=== PATIENT | female | born 1975 | race African-American/Black ===

== ENCOUNTER 2022-04-05 11:42 | Emergency (ER) | payer SELFPAY | END 2022-04-05 13:12 | LOC: MW.ED 11:42 | DX: Z02.89 Encounter for other administrative examinations (principal); F17.210 Nicotine dependence, cigarettes, uncomplicated | CPT/HCPCS: 99282; 99283 ==

== ENCOUNTER 2022-08-30 12:19 | Observation (INO) | payer SELFPAY ==
[2022-08-30] MEDS ORDERED: Sodium Chloride 0.9% 10 ML Syringe FLUSH PRN (12:55)
[2022-08-30] MEDS ORDERED: Sodium Chloride 0.9% 1,000 ML IV ONE (12:55)
[2022-08-30] MEDS ORDERED: Sodium Chloride 0.9% 2.5 ML Syringe FLUSH PRN (12:55)
[2022-08-30] MEDS ORDERED: Dicyclomine 10 MG Cap PO ONE (12:56)
[2022-08-30] MEDS ORDERED: Morphine 4 MG/ML Syringe IVPUSH ONE (12:56)
[2022-08-30] MEDS ORDERED: Famotidine 20 MG/2 ML SDV IVPUSH ONE (12:56)
[2022-08-30] MEDS ORDERED: Ondansetron 4 MG/2 ML SDV IVPUSH ONE (12:56)
[2022-08-30 13:13] LABS: BASOPHILS PERCENT AUTO 0.2 % (0.0-1.5); EOSINOPHILS ABSOLUTE AUTO 0.8 K/uL (0.0-0.7); HEMATOCRIT 45.1 % (36.0-46.0); HEMOGLOBIN 15.7 g/dL (12.0-16.0); LYMPHOCYTES ABSOLUTE AUTO 4.9 K/uL (0.6-2.4); MEAN CORPUSCULAR HEMOGLOBIN 31.7 pg (27.0-32.0); MEAN CORPUSCULAR HGB CONC 34.8 g/dL (31.0-37.0); MEAN CORPUSCULAR VOLUME 91.1 fL (80.0-98.0); MONOCYTES ABSOLUTE AUTO 0.4 K/uL (0.0-0.8); MONOCYTES PERCENT AUTO 3.3 % (0.0-15.0); NEUTROPHILS PERCENT AUTO 45.5 % (48.0-80.0); NRBC ABSOLUTE 0 K/uL; PLATELET COUNT,PLT 270 K/uL (150-400); RED BLOOD CELL COUNT 4.95 M/uL (4.30-5.90); WHITE BLOOD CELL COUNT,WBC 11.07 K/uL (4.0-11.0)
[2022-08-30 13:37] LABS: A/G RATIO 0.9 (0.9-1.6); ALANINE AMINOTRANSFERASE,ALT 28 IU/L (14-63); ALBUMIN 3.7 g/dL (3.4-5.0); ALKALINE PHOSPHATASE 148 U/L (46-116); ASPARTATE AMNIOTRANSFERASE,AST 14 IU/L (15-37); BILIRUBIN TOTAL 0.2 mg/dL (0.2-1.0); BLOOD UREA NITROGEN,BUN 13 mg/dL (7.0-18.0); CALCIUM 8.5 mg/dL (8.5-10.1); CARBON DIOXIDE,CO2 26.8 mmol/L (21.0-32.0); CHLORIDE,CL 107 mmol/L (98-107); CREATININE 0.9 mg/dL (0.6-1.0); GLUCOSE RANDOM 116 mg/dL (74-106); LIPASE 59 U/L (73-393); MAGNESIUM 1.7 mg/dL (1.8-2.4); POTASSIUM,K 4.1 mmol/L (3.5-5.1); SODIUM,NA 143 mmol/L (136-145)
[2022-08-30 13:39] LABS: ESTIMATED GFR 79 mL/min (>60)
[2022-08-30] MEDS ORDERED: Iopamidol 755 MG/ML 500 ML Multipack Bottle IVPUSH STA (13:56)
[2022-08-30] MEDS ORDERED: diphenhydrAMINE 50 MG/ML SDV IVPUSH ONE (14:01)
[2022-08-30] MEDS ORDERED: metroNIDAZOLE/Normal Saline 500 MG in Premix Bag 1 BAG IV ONE (14:58)
[2022-08-30] MEDS ORDERED: Levofloxacin/Dextrose 5%-Water 750 MG in Premix Bag 1 BAG IV ONE (14:58)
[2022-08-30] MEDS ORDERED: Levofloxacin/Dextrose 5%-Water 750 MG in Premix Bag 1 BAG IV SCH (15:00)
[2022-08-30] MEDS ORDERED: Non-Formulary Medication 1 Each (Buprenorphine Hcl/Naloxone Hcl [Suboxone 12 Mg-3 Mg Sl Fi PO PRN (16:32)
[2022-08-30] MEDS ORDERED: oxyCODONE 5 MG Tab PO PRN (16:33)
[2022-08-30] MEDS ORDERED: Acetaminophen 325 MG Tab PO PRN (16:33)
[2022-08-30] MEDS ORDERED: HYDROmorphone 2 MG/ML Syringe IVPUSH PRN (16:33)
[2022-08-30] MEDS: Lactated Ringers 1,000 ML IV SCH (17:46)
[2022-08-30] MEDS ORDERED: metroNIDAZOLE/Normal Saline 500 MG in Premix Bag 1 BAG IV SCH (18:00)
[2022-08-30] MEDS: metroNIDAZOLE/Normal Saline 500 MG in Premix Bag 1 BAG IV SCH (23:38)
[2022-08-31] MEDS: Lactated Ringers 1,000 ML IV SCH (00:52)
[2022-08-31 06:27] LABS: BASOPHILS PERCENT AUTO 0.3 % (0.0-1.5); EOSINOPHILS ABSOLUTE AUTO 0.8 K/uL (0.0-0.7); EOSINOPHILS PERCENT AUTO 8.1 % (0.0-7.0); HEMATOCRIT 40.1 % (36.0-46.0); HEMOGLOBIN 13.3 g/dL (12.0-16.0); LYMPHOCYTES ABSOLUTE AUTO 5.2 K/uL (0.6-2.4); LYMPHOCYTES PERCENT AUTO 52.7 % (16.0-40.0); MEAN CORPUSCULAR HEMOGLOBIN 30.6 pg (27.0-32.0); MEAN CORPUSCULAR HGB CONC 33.2 g/dL (31.0-37.0); MEAN CORPUSCULAR VOLUME 92.2 fL (80.0-98.0); MONOCYTES ABSOLUTE AUTO 0.4 K/uL (0.0-0.8); MONOCYTES PERCENT AUTO 4.5 % (0.0-15.0); NEUTROPHILS ABSOLUTE AUTO 3.4 K/uL (1.4-5.7); NEUTROPHILS PERCENT AUTO 34.4 % (48.0-80.0); NRBC ABSOLUTE 0 K/uL; PLATELET COUNT,PLT 238 K/uL (150-400); RED BLOOD CELL COUNT 4.35 M/uL (4.30-5.90); WHITE BLOOD CELL COUNT,WBC 9.83 K/uL (4.0-11.0)
[2022-08-31] MEDS: metroNIDAZOLE/Normal Saline 500 MG in Premix Bag 1 BAG IV SCH (06:32)
[2022-08-31 06:42] LABS: CALCIUM 7.8 mg/dL (8.5-10.1); CARBON DIOXIDE,CO2 27.3 mmol/L (21.0-32.0); CREATININE 0.8 mg/dL (0.6-1.0); EST CRCL DRUG DOSING (CG) 86.75 mL/min; MAGNESIUM 1.6 mg/dL (1.8-2.4)
[2022-08-31] MEDS ORDERED: Enoxaparin 40 MG/0.4 ML Syringe SUBCUT SCH (09:00)
[2022-08-31] MEDS ORDERED: Levofloxacin 750 MG Tab PO SCH (14:00)
== END 2022-08-31 11:18 | disposition home or self-care (01) ==
LOC: MW.ED 12:19 → MW.MS 15:39
PROVIDERS: ADMIT Internal Medicine; ATTEND Internal Medicine
DX: A09 Infectious gastroenteritis and colitis, unspecified (principal); R10.32 Left lower quadrant pain; F11.20 Opioid dependence, uncomplicated; F17.210 Nicotine dependence, cigarettes, uncomplicated; Z79.899 Other long term (current) drug therapy; Z91.041 Radiographic dye allergy status; Z90.49 Acquired absence of other specified parts of digestive tract; Z98.890 Other specified postprocedural states
CPT/HCPCS: 36415; 74177; 80048; 80053; 83690; 83735; 84703; 85025; 87045; 87046; 87449; 87899; A9270; J1200; J1650; J1956; J2270; J2405; J3490; J7030; J7120; Q9967; 96361; 96365; 96366; 96367; 96372; 96375; 99221; 99238; 99284; 99285-25; G0378